=== PATIENT | male | born 1955 | race Caucasian/White ===

== ENCOUNTER → 2025-07-29 | Outpatient (CLI) | payer MEDICARE, BC, SELFPAY ==
[2025-08-04 06:50] LABS: Testosterone,Total* 5 ng/dL (250-1100)
== END | disposition home or self-care (01) ==
LOC: COPL 08:07
PROVIDERS: PCP Family Medicine; Referring Provider Urology; Visit Provider Urology
DX: C61 Malignant neoplasm of prostate (principal)
CPT/HCPCS: 36415; 84403